=== PATIENT | male | born 1995 | race Caucasian/White ===

== ENCOUNTER 2018-01-02 01:05 | Emergency (ER) | payer SELFPAY ==
[~2018-01-02] VITALS: Ht 177.8 cm; Wt 59.0 kg
[2018-01-02 01:24] VITALS: BP 123/77
[2018-01-02] MEDS ORDERED: KETOROLAC 30 MG/ML VIAL IM ONE (01:50)
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
--- NOTE | 2018-01-02 02:15 | NUR ---
PATIENT BIB WHEELCHAIR TO ER CHAIR A.
--- NOTE | 2018-01-02 02:37 | NUR ---
PATIENT MOVED TO ER BED 10.
[2018-01-02 03:23] VITALS: BP 129/83
--- NOTE | 2018-01-02 03:23 | NUR ---
Patient discharged with v/s stable. Written and verbal after care instructions given and explained. Patient alert, oriented and verbalized understanding of instructions. Ambulatory with steady gait. All questions addressed prior to discharge. ID band removed. Patient advised to follow up with PMD. Rx of IBUPROFEN 800MG given. Patient educated on indication of medication including possible reaction and side effects. Opportunity to ask questions provided and answered.
== END 2018-01-02 03:23 | disposition home or self-care (01) ==
LOC: MED 01:05
DX: S93.491A Sprain of other ligament of right ankle, initial encounter (principal); X58.XXXA Exposure to other specified factors, initial encounter; Y93.51 Activity, roller skating (inline) and skateboarding; Y92.89 Other specified places as the place of occurrence of the external cause; Y99.8 Other external cause status
CPT/HCPCS: 73610; 96372; 99284; J1885; Q0092

== ENCOUNTER 2019-05-17 00:25 | Emergency (ER) | payer MEDICAID, OTHER ==
[~2019-05-17] VITALS: Ht 177.8 cm; Wt 59.4 kg
[2019-05-17 00:46] VITALS: BP 135/86
--- NOTE | 2019-05-17 00:52 | NUR ---
PT AMBULATED TO BED 5
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
[2019-05-17] MEDS ORDERED: LIDOCAINE 1% 500 MG/50 ML VIAL INJ SCH (01:45)
[2019-05-17] MEDS ORDERED: LIDOCAINE MPF 1% - 5 mL VIAL 5 ML ONE (01:58)
[2019-05-17] MEDS ORDERED: NEOMYCIN/POLYMYXIN/BACITRACIN 0.9 GM/1 PKT TP ONE (02:45)
--- NOTE | 2019-05-17 02:45 | NUR ---
BACITRACIN PLACED ON PTS WOUND THEN COVERRED WITH A NON ADHERENT GAUZE
--- NOTE | 2019-05-17 02:55 | NUR ---
Patient discharged with v/s stable. Written and verbal after care instructions given and explained. PT instructed to keep area clean and dry and to apply antibiotics as prescribed. Patient alert, oriented and verbalized understanding of instructions. Ambulatory with steady gait. All questions addressed prior to discharge. ID band removed. Patient advised to follow up with PMD. Rx of MOTRIN AND NEOSPORIN WAS given. Patient educated on indication of medication including possible reaction and side effects. Opportunity to ask questions provided and answered.
[2019-05-17 02:56] VITALS: BP 135/86
== END 2019-05-17 02:55 | disposition home or self-care (01) ==
LOC: MED 00:25
DX: S01.112A Laceration without foreign body of left eyelid and periocular area, initial encounter (principal); W18.09XA Striking against other object with subsequent fall, initial encounter; Y93.51 Activity, roller skating (inline) and skateboarding; Y92.89 Other specified places as the place of occurrence of the external cause; Y99.8 Other external cause status
CPT/HCPCS: 12011; 90471; 90715; 99283; J2001

== ENCOUNTER 2019-05-30 15:35 | Emergency (ER) | payer OTHER ==
[~2019-05-30] VITALS: Ht 165.1 cm; Wt 59.0 kg
[2019-05-30 15:42] VITALS: BP 127/60
[2019-05-30] MEDS ORDERED: BACITRACIN OINT 500 UNITS/GM PKT TP ONE (17:30)
[2019-05-30] MEDS ORDERED: NEOMYCIN/POLYMYXIN/BACITRACIN 0.9 GM/1 PKT TP ONE (17:45)
[2019-05-30 17:53] VITALS: BP 122/52
== END 2019-05-30 17:54 | disposition home or self-care (01) ==
LOC: MED 15:35
DX: S01.112D Laceration without foreign body of left eyelid and periocular area, subsequent encounter (principal); Z48.02 Encounter for removal of sutures; X58.XXXD Exposure to other specified factors, subsequent encounter
CPT/HCPCS: 99283

== ENCOUNTER 2020-10-19 02:47 | Emergency (ER) | payer OTHER ==
[~2020-10-19] VITALS: Ht 177.8 cm; Wt 59.0 kg
[2020-10-19 02:57] VITALS: BP 125/74
--- NOTE | 2020-10-19 02:57 | NUR ---
to bed # 07 ambulatory
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
[2020-10-19] MEDS ORDERED: LIDOCAINE/EPI 1% 1:100000 20 ML VIAL INJ ONE (04:15)
--- NOTE | 2020-10-19 05:14 | NUR ---
ERMD AT BEDSIDE PERFORMING PROCEDURE
--- NOTE | 2020-10-19 05:15 | NUR ---
Patient has a 5 cm laceration to LEFT EYEBROW. Dr. SHEPHERD applied sutures using sterile technique. Edges well approximated. Site cleansed with WELL. No bleeding noted. Pt tolerated well.
[2020-10-19] MEDS ORDERED: BACITRACIN OINT 500 UNITS/GM PKT TP ONE (05:25)
[2020-10-19 06:25] VITALS: BP 120/65
--- NOTE | 2020-10-19 06:25 | NUR ---
Patient discharged with v/s stable. Written and verbal after care instructions given and explained. Patient alert, oriented and verbalized understanding of instructions. Ambulatory with steady gait. All questions addressed prior to discharge. ID band removed. Patient advised to follow up with PMD. Rx of NORCO 5MG-325MG given. Patient educated on indication of medication including possible reaction and side effects. Opportunity to ask questions provided and answered.
== END 2020-10-19 06:25 | disposition home or self-care (01) ==
LOC: MED 02:47
DX: S01.112A Laceration without foreign body of left eyelid and periocular area, initial encounter (principal); S09.12XA Laceration of muscle and tendon of head, initial encounter; Y93.39 Activity, other involving climbing, rappelling and jumping off; Y93.89 Activity, other specified; Y92.89 Other specified places as the place of occurrence of the external cause; Y99.8 Other external cause status
CPT/HCPCS: 12013; 99283; J2001

== ENCOUNTER 2021-08-09 10:47 | Emergency (ER) | payer OTHER ==
[~2021-08-09] VITALS: Ht 177.8 cm; Wt 59.0 kg
[2021-08-09 10:52] VITALS: BP 133/94
--- NOTE | 2021-08-09 11:31 | NUR ---
Zari cole in [facility] - 08/09/21 at 1135 by [email or web address] NECK COLOR WAS PUT ON THE PATINET.
--- NOTE | 2021-08-09 11:31 | NUR ---
LAB DONE AND GAVE IT TO THE LAB.
--- NOTE | 2021-08-09 11:32 | NUR ---
IV 20 G WAS ESTABLISHED.
--- NOTE | 2021-08-09 11:36 | NUR ---
CERVICAL COLLOR WAS PLACED ON THE PATIENT.
[2021-08-09 11:46] LABS: BASOPHILS # (AUTO) 0.1 K/uL (0.00-0.22); BASOPHILS % (AUTO) 0.3 % (0.0-2.0); EOSINOPHILS % (AUTO) 0.1 % (0.0-4.0); HEMOGLOBIN 15.3 g/dL (12.0-18.0); LYMPHOCYTES # (AUTO) 1.7 K/uL (2.0-11.5); LYMPHOCYTES % (AUTO) 8.7 % (20.5-51.1); MEAN CORPUSCULAR HEMOGLOBIN 32 pg (27-31); MEAN CORPUSCULAR HGB CONC 34 g/dL (33-37); MEAN CORPUSCULAR VOLUME 92.9 fL (80-94); MONOCYTES # (AUTO) 1.4 K/uL (0.8-1.0); MONOCYTES % (AUTO) 7.1 % (1.7-9.3); NEUTROPHILS # (AUTO) 16.4 K/uL (1.8-7.7); NEUTROPHILS % (AUTO) 83.8 % (42.2-75.2); PLATELET COUNT (AUTO) 237 K/uL (140-450); RED BLOOD CELL COUNT(AUTO) 4.85 MIL/uL (4.20-6.10); RED CELL DISTRIBUTION WIDTH 13.9 % (11.6-13.7); WHITE BLOOD COUNT (AUTO) 19.5 K/uL (4.8-10.8)
[2021-08-09] MEDS: NACL 0.9% 1,000 ML IV ONE ×2 (11:46→12:48)
[2021-08-09 12:04] LABS: ANION GAP 20.6 (8-16); CARBON DIOXIDE 22.1 mmol/L (21-32); CREATININE 0.8 mg/dL (0.6-1.3); POTASSIUM 3.7 mmol/L (3.5-5.1)
--- NOTE | 2021-08-09 12:28 | NUR ---
PT RETURNED TO BED [address] [facility] [facility]
--- NOTE | 2021-08-09 12:33 | NUR ---
BACK FROM CT SCAN.
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
[2021-08-09] MEDS ORDERED: NAPR-54 PO (13:40)
[2021-08-09] MEDS ORDERED: ACET-9527 PO (13:40)
--- NOTE | 2021-08-09 14:16 | NUR ---
BEDSIDE PLACING SPLINT ON PATIENT
[2021-08-09 14:21] VITALS: BP 106/76
[2021-08-09] MEDS ORDERED: ONDA-188 SL (14:48)
[2021-08-09] MEDS ORDERED: ONDANSETRON 4 MG ODT PO ONE (14:50)
--- NOTE | 2021-08-09 15:10 | NUR ---
Patient discharged with v/s stable. Written and verbal after care instructions given and explained. Patient alert, oriented and verbalized understanding of instructions. Wheel Chair Assisted with to car. All questions addressed prior to discharge. ID band removed. Patient advised to follow up with PMD. Rx of HYDROCODONE,NAPROXEN given. Opportunity to ask questions provided and answered.
== END 2021-08-09 15:09 | disposition home or self-care (01) ==
LOC: MED 10:47
DX: S02.40FA Zygomatic fracture, left side, initial encounter for closed fracture (principal); S02.2XXA Fracture of nasal bones, initial encounter for closed fracture; S82.52XA Displaced fracture of medial malleolus of left tibia, initial encounter for closed fracture; F10.129 Alcohol abuse with intoxication, unspecified; Z79.899 Other long term (current) drug therapy; W19.XXXA Unspecified fall, initial encounter; Y93.89 Activity, other specified; Y92.89 Other specified places as the place of occurrence of the external cause; Y99.8 Other external cause status
CPT/HCPCS: 29515; 36415; 70450; 70486; 71045; 71260; 72125; 73610; 74177; 80048; 84484; 85025; 86886; 86900; 86901; 99285; G0482; Q0092; Q0162; Q9967; J7030